=== PATIENT | male | born 1980 | race Caucasian/White ===

== ENCOUNTER 2016-09-07 10:06 | Emergency (ER) | payer MEDICAID, OTHER ==
[~2016-09-07 10:06] MED LIST: Folic Acid 1 MG in Sodium Chloride 0.9% 50 ML IV SCH
[2016-09-07] MEDS ORDERED: Thiamine 100 MG in Sodium Chloride 0.9% 100 ML IV ONE (10:22)
[2016-09-07] MEDS ORDERED: Ondansetron 4 MG/2 ML SDV IVPUSH ONE (10:28)
[2016-09-07] MEDS ORDERED: Pantoprazole 40 MG Vial IVPUSH ONE (10:28)
[2016-09-07] MEDS ORDERED: Vitamin B6-pyridOXINE 50 MG Tab PO SCH (10:30)
[2016-09-07] MEDS ORDERED: Folic Acid 50 MG/10 ML MDV IV STA (10:40)
[2016-09-07] MEDS ORDERED: Sodium Chloride 0.9% 1,000 ML IV ONE ×2 (10:41→12:05)
[2016-09-07] MEDS ORDERED: LORazepam 2 MG/ML MDV IVPUSH ONE (10:57)
[2016-09-07 10:58] LABS: CHLORIDE,CL 79 mmol/L (98-110); SODIUM,NA 128 mmol/L (136-146)
--- NOTE | 2016-09-07 11:01 | EDM.PDOC ---
<Zulema Garcia - Last Filed: 09/07/16 11:56> ED HPI Behavioral Health - General Chief Complaint: Behavioral/Psych Stated Complaint: UNK Time Seen by Provider: 09/07/16 10:10 Source of Information: Reports: Patient Exam Limitations: Reports: No limitations - History of Present Illness INITIAL COMMENTS - FREE TEXT/NARRATIVE: HISTORY AND PHYSICAL: History of present illness: [Patient is brought to the emergency room via EMS. Patient reports that at 6 AM this morning he was feeling suicidal and wanted to so he drank a Styrofoam cup full of anti-freeze. Immediately he felt regret for his actions, and made himself vomit. He's been pushing water as much as possible and continues to have vomiting. A staff member at the hotel where he lives saw that he was vomiting and called 911. Patient noted blood in his vomit. Has a history of esophageal varices, type 2 diabetes, depression, alcoholism. He complains of generalized abdominal pain which only began after vomiting. He denies any blurred vision and double vision. Wears glasses regularly. Denies pain in his chest, shortness of breath and difficulty breathing. Admits to vomiting, though none since arriving in the ER. Was taken off of Zoloft one month ago by PCP in [place] due to inability to tolerate side effects. Was not started on any other medications. Drank 1 pint of vodka yesterday. Review of systems: As per history of present illness and below otherwise all systems reviewed and negative. Past medical history: As per history of present illness and as reviewed below otherwise noncontributory. Surgical history: As per history of present illness and as reviewed below otherwise noncontributory. Social history: No reported history of drug or alcohol abuse. Family history: As per history of present illness and as reviewed below otherwise noncontributory. Physical exam: HEENT: Atraumatic, normocephalic. PERRLA. wears glasses. negative for conjunctival pallor or scleral icterus. Oral mucous membranes slightly dry. throat clear, neck supple, nontender, trachea midline. No lymphadenopathy. Lungs: Clear to auscultation, breath sounds equal bilaterally, chest nontender. Heart: S1S2, rate 130, rhythm regular. negative for clicks, rubs, or JVD. Abdomen: Normoactive bowel sounds. Soft, nondistended. Diffuse generalized abdominal discomfort with palpation. Negative for masses or hepatosplenomegaly. Negative for costovertebral tenderness. Pelvis: Stable nontender. Genitourinary: Deferred. Rectal: Deferred. Extremities: Atraumatic, negative for cords or calf pain. Full range of motion x4 extremities. Neurovascular unremarkable. Neuro: Cranial nerves II through XII unremarkable. Cerebellum unremarkable. Motor and sensory unremarkable throughout. Exam nonfocal. Psych: Awake, alert and oriented. He is tearful at times. States that he has had worsening depression over the past couple of weeks. Verbalizes that he had intention of killing himself by drinking antifreeze this morning. Diagnostics: [CBC, CMP, UA, UDS, ABG's, EKG, ETOH, salicylate, acetaminophen, TSH, T3 free, Magnesium, ethylene glycol level, methanol level, serum osmolality] Therapeutics: [1 L normal saline, folic acid, thiamine, vitamin B6, Protonix 80 mg IV, Zofran 4 mg IV, fomepizole IV, Ativan 1 mg IV Impression: [antifreeze ingestion] Plan: [Spoke with Dr. Guan at [facility] at 1130, who agrees to accept patient in transfer. Patient is notified and verbalized understanding of transfer. MAURA is completed. ] Definitive disposition and diagnosis as appropriate pending reevaluation and review of above. - Related Data Allergies Allergy/AdvReac Type Severity Reaction Status Date / Time No Known Allergies Allergy Verified 09/07/16 10:27 Home Medications: Home Meds metFORMIN [Glucophage] 1,000 mg PO BID 08/08/16 [History] Diazepam [Valium] 5 mg PO TID tablet 08/11/16 [Rx] Folic Acid 1 mg PO DAILY tablet 08/11/16 [Rx] Phosphorus #1 [Neutra-Phos] 250 mg PO QID tablet 08/11/16 [Rx] Thiamine [Vitamin B-1] 100 mg IV DAILY mdv 08/11/16 [Rx] Abdomen Pain Score (Numeric/FACES): 8 Past Medical History Cardiovascular History: Reports: Hypertension, Other (see below) Other Cardiovascular History: not currently taking any meds for HTN Gastrointestinal History: Reports: GERD Genitourinary History: Reports: Chronic renal insuffiency Neurological History: Reports: Seizure, Other (see below) Other Neuro History: states has seizures after not drinking for periods of time Psychiatric History: Reports: Depression Endocrine/Metabolic History: Reports: Diabetes, type II Oncologic (Cancer) History: Reports: None - Infectious Disease History Infectious Disease History: Reports: Chicken pox - Past Surgical History Cardiovascular Surgical History: Reports: None GI Surgical History: Reports: Appendectomy, Cholecystectomy Neurological Surgical History: Reports: None Musculoskeletal Surgical History: Reports: Shoulder surgery, Other (see below) Other Musculoskeletal Surgeries/Procedures:: Right Foot Social & Family History - Family History Family Medical History: Noncontributory - Tobacco Use Smoking Status *Q: Current Every Day Smoker Years of Tobacco use: 15 Packs/Tins Daily: 1 Used Tobacco, but Quit: No Second Hand Smoke Exposure: Yes - Caffeine Use Caffeine Use: Reports: None - Alcohol Use Days Per Week of Alcohol Use: 2 Number of Drinks Per Day: 1 Total Drinks Per Week: 2 - Recreational Drug Use Recreational Drug Use: No ED ROS GENERAL - Review of Systems Review Of Systems: ROS reveals no pertinent complaints other than HPI. ED EXAM, BEHAVIORAL HEALTH - Physical Exam Exam: See Below COURSE, BEHAVIORAL HEALTH COMP - Course Vital Signs: Last Vital Signs Temp 36.9 C 09/07/16 10:06 Pulse 131 H 09/07/16 10:06 Resp 16 09/07/16 10:06 BP 151/104 H 09/07/16 10:06 Pulse Ox 95 09/07/16 10:06 Orders, Labs, Meds: Active Orders 24 hr Category Date Time Status EKG 12 Lead [EKG Documentation Completion] [RC] STAT Care 09/07/16 10:18 Active ACETAMINOPHEN [CHEM] Stat Lab 09/07/16 10:17 Results COMPREHENSIVE METABOLIC PN,CMP [CHEM] Stat Lab 09/07/16 10:17 Results DRUG SCREEN, URINE [URCHEM] Stat Lab 09/07/16 11:52 Received ETHANOL BLOOD MEDICAL [CHEM] Stat Lab 09/07/16 10:17 Results FREE T3 [REF] Stat Lab 09/07/16 10:10 Received MAGNESIUM [CHEM] Stat Lab 09/07/16 10:17 Results MISC TEST Stat Lab 09/07/16 10:31 Ordered MISC TEST Stat Lab 09/07/16 10:32 Ordered OSMOLALITY - SERUM [REF] Stat Lab 09/07/16 10:10 Received SALICYLATE [CHEM] Stat Lab 09/07/16 10:17 Results TSH [CHEM] Stat Lab 09/07/16 10:17 Results UA W/MICROSCOPIC [URIN] Stat Lab 09/07/16 11:52 Received Folic Acid 1 mg Med 09/07/16 09:00 Active Sodium Chloride 0.9% [Normal Saline] 50 ml IV DAILY Fomepizole 1.5 gm Med 09/07/16 21:00 Active Sodium Chloride 0.9% [Normal Saline] 100 ml IV Q12HR Magnesium Sulfate/Water [Magnesium Sulfate 2 GM in Med 09/07/16 11:31 Active Water 50 ML] 2 gm Premix Bag 1 bag IV ONETIME Vitamin B6-pyridOXINE Med 09/07/16 10:30 Active 50 mg PO DAILY Medication Orders Fomepizole 1.5 gm/ Sodium (Chloride) 101.5 mls @ 100.495 mls/hr IV Q12HR [facility] Last Admin: 09/07/16 11:16 Dose: 100.495 mls/hr Magnesium Sulfate 2 gm/ Premix 50 mls @ 25 mls/hr IV ONETIME ONE Stop: 09/07/16 13:30 Last Admin: 09/07/16 11:48 Dose: 25 mls/hr Folic Acid 1 mg/ Sodium (Chloride) 50.2 mls @ 100.4 mls/hr IV DAILY [facility] Pyridoxine HCl (Vitamin B6-Pyridoxine) 50 mg PO DAILY [facility] Last Admin: 09/07/16 11:22 Dose: 50 mg Laboratory Tests 09/07/16 09/07/16 09/07/16 Range/Units 10:10 10:10 10:17 WBC 14.26 H (4.0-11.0) K/uL RBC 5.64 (4.50-5.90) M/uL Hgb 14.8 (13.0-17.0) g/dL Hct 44.0 (38.0-50.0) % MCV 78.0 L (80.0-98.0) fL MCH 26.2 L (27.0-32.0) pg MCHC 33.6 (31.0-37.0) g/dL RDW Std Deviation 44.4 (28.0-62.0) fl RDW Coeff of Destini 16 H (11.0-15.0) % Plt Count 369 (150-400) K/uL MPV 9.00 (7.40-12.00) fL Neut % (Auto) 82.4 H (48.0-80.0) % Lymph % (Auto) 10.2 L (16.0-40.0) % [place] % (Auto) 7.1 (0.0-15.0) % Eos % (Auto) 0.1 (0.0-7.0) % Baso % (Auto) 0.2 (0.0-1.5) % Neut # 11.8 H (1.4-5.7) K/uL Lymph # 1.5 (0.6-2.4) K/uL [place] # 1.0 H (0.0-0.8) K/uL Eos # 0.0 (0.0-0.7) K/uL Baso # 0.0 (0.0-0.1) K/uL Nucleated RBC % 0.0 /100WBC Nucleated RBCs # 0 K/uL INR 1.01 (0.86-1.11) ABG pH (7.35-7.45) ABG pCO2 (35-45) mmHG ABG pO2 (75-100) mmHG ABG HCO3 (22-26) mEq/L ABG Total CO2 ABG Base Excess (-2.0-2.0) Sodium 128 L (136-146) mmol/L Potassium 3.8 (3.5-5.1) mmol/L Chloride 79 L (98-110) mmol/L Carbon Dioxide 23 (21-31) mmol/L BUN 15 (6.0-23.0) mg/dL Creatinine 1.3 (0.6-1.5) mg/dL Est Cr Clr Drug Dosing 87.88 mL/min Estimated GFR (MDRD) > 60.0 ml/min Glucose 443 H (60-110) mg/dL Calcium 10.0 (8.8-10.8) mg/dL Magnesium 1.4 L (1.5-2.3) mEq/L Total Bilirubin 1.6 H (0.1-1.5) mg/dL AST 25 (5-40) IU/L ALT 70 H (8-54) IU/L Alkaline Phosphatase 213 H (40-150) Total Protein 8.6 H (6.0-8.0) g/dL Albumin 4.8 (3.5-5.0) g/dL Globulin 3.8 H (2.0-3.5) g/dL Albumin/Globulin Ratio 1.3 (1.3-2.8) Salicylates < 5.0 (0-20) mg/dL Acetaminophen < 3.0 ug/mL Ethyl Alcohol 21.4 mg/dL 09/07/16 Range/Units 11:45 WBC (4.0-11.0) K/uL RBC (4.50-5.90) M/uL Hgb (13.0-17.0) g/dL Hct (38.0-50.0) % MCV (80.0-98.0) fL MCH (27.0-32.0) pg MCHC (31.0-37.0) g/dL RDW Std Deviation (28.0-62.0) fl RDW Coeff of Destini (11.0-15.0) % Plt Count (150-400) K/uL MPV (7.40-12.00) fL Neut % (Auto) (48.0-80.0) % Lymph % (Auto) (16.0-40.0) % [place] % (Auto) (0.0-15.0) % Eos % (Auto) (0.0-7.0) % Baso % (Auto) (0.0-1.5) % Neut # (1.4-5.7) K/uL Lymph # (0.6-2.4) K/uL [place] # (0.0-0.8) K/uL Eos # (0.0-0.7) K/uL Baso # (0.0-0.1) K/uL Nucleated RBC % /100WBC Nucleated RBCs # K/uL INR (0.86-1.11) ABG pH 7.544 H (7.35-7.45) ABG pCO2 35 (35-45) mmHG ABG pO2 69 L (75-100) mmHG ABG HCO3 31 H (22-26) mEq/L ABG Total CO2 26.3 ABG Base Excess 7.6 H (-2.0-2.0) Sodium (136-146) mmol/L Potassium (3.5-5.1) mmol/L Chloride (98-110) mmol/L Carbon Dioxide (21-31) mmol/L BUN (6.0-23.0) mg/dL Creatinine (0.6-1.5) mg/dL Est Cr Clr Drug Dosing mL/min Estimated GFR (MDRD) ml/min Glucose (60-110) mg/dL Calcium (8.8-10.8) mg/dL Magnesium (1.5-2.3) mEq/L Total Bilirubin (0.1-1.5) mg/dL AST (5-40) IU/L ALT (8-54) IU/L Alkaline Phosphatase (40-150) Total Protein (6.0-8.0) g/dL Albumin (3.5-5.0) g/dL Globulin (2.0-3.5) g/dL Albumin/Globulin Ratio (1.3-2.8) Salicylates (0-20) mg/dL Acetaminophen ug/mL Ethyl Alcohol mg/dL Medications Generic Name Dose Route Start Last Admin Trade Name Freq PRN Reason Stop Dose Admin Fomepizole 1.5 gm/ Sodium 101.5 mls @ 100.495 mls/hr 09/07/16 21:00 09/07/16 11:16 Chloride IV 100.495 mls/hr Q12HR RAMESH Administration Magnesium Sulfate 2 gm/ Premix 50 mls @ 25 mls/hr 09/07/16 11:31 09/07/16 11: 48 IV 09/07/16 13:30 25 mls/hr ONETIME ONE Administration Folic Acid 1 mg/ Sodium 50.2 mls @ 100.4 mls/hr 09/07/16 09:00 Chloride IV DAILY RAMESH Pyridoxine HCl 50 mg 09/07/16 10:30 09/07/16 11:22 Vitamin B6-Pyridoxine PO 50 mg DAILY RAMESH Administration Discontinued Medications Generic Name Dose Route Start Last Admin Trade Name Freq PRN Reason Stop Dose Admin Folic Acid 50 mg 09/07/16 10:40 Folic Acid IV 09/07/16 10:41 DAILY STA Thiamine HCl 100 mg/ Sodium 101 mls @ 100 mls/hr 09/07/16 10:22 09/07/16 11: 42 Chloride IV 09/07/16 11:22 100 mls/hr ONETIME ONE Administration Sodium Chloride 1,000 mls @ 999 mls/hr 09/07/16 10:41 09/07/16 11:21 Normal Saline IV 09/07/16 11:41 300 mls/hr STAT ONE Infusion Insulin Human Regular 10 unit 09/07/16 11:31 Novolin R SUBCUT 09/07/16 11:32 ONETIME ONE Protocol Lorazepam 1 mg 09/07/16 10:57 09/07/16 11:04 Ativan IVPUSH 09/07/16 10:58 1 mg ONETIME ONE Administration Ondansetron HCl 4 mg 09/07/16 10:28 09/07/16 10:46 Zofran IVPUSH 09/07/16 10:29 4 mg ONETIME ONE Administration Pantoprazole Sodium 80 mg 09/07/16 10:28 09/07/16 10:55 Protonix Iv IVPUSH 09/07/16 10:29 80 mg .BOLUS ONE Administration Departure - Departure Disposition: DC/Tfer to Acute Hospital 02 Clinical Impression: Suicide attempt by alcohol poisoning Qualifiers: Encounter type: initial encounter Qualified Code(s): T51.92XA - Toxic effect of unspecified alcohol, intentional self-harm, initial encounter Forms: ED Department Discharge - My Orders Last 24 Hours: My Active Orders 09/07/16 11:31 Magnesium Sulfate/Water [Magnesium Sulfate 2 GM in Water 50 ML] 2 gm Premix Bag 1 bag IV ONETIME - Assessment/Plan Last 24 Hours: My Active Orders 09/07/16 11:31 Magnesium Sulfate/Water [Magnesium Sulfate 2 GM in Water 50 ML] 2 gm Premix Bag 1 bag IV ONETIME <Annabella Cardenas - Last Filed: 09/07/16 12:02> ED HPI Behavioral Health - History of Present Illness INITIAL COMMENTS - FREE TEXT/NARRATIVE: This is Dr. Cardenas dictating an addendum note as a supervising physician on this case I Agree with history and physical as above and I have seen and personally evaluated the patient myself. This patient has been seen here in the past by me for depressive symptoms and alcohol withdrawal and was admitted just recently for same. The patient does admit to drinking the antifreeze this morning about 6 AM and he states that when he was vomiting he was only a small amount of blood. Here in the ED patient's vomitus looks more bilious and brown but not bloody. He is very anxious and tachycardic there states he has been drinking water. The patient does admit to drinking a pint of alcohol yesterday afternoon. In the ED the patient denies any chest pain or abdominal pain and he is aware of the severity of his actions. I personally spoken to poison control at 10:29 AM and they will continue to follow along with this patient. Due to her laboratory sources here at our institution patient is aware he will need to be transferred to [facility]. As the patient actually expressed suicidal ideation he will need psychiatric care and we have ordered he started fomipazole here in the ED we have also treated symptomatology with IV fluids Protonix Zofran as well as the thiamine folic acid and B6 per protocol. The case was discussed with the ER physician at [facility] Dr. Guan was accepted the patient. We are currently awaiting his ABG to assess if he needs a bicarbonate drip for transportation. We are unable to get an osmolality level here so an osmol gap cannot be calculated. His anion gap is currently 26. Patient was also given some Ativan for his anxiety. Any labs that are pending at the time of transfer will be sent to the receiving hospital. Please also note that the toxic all levels are send outs for methanol and ethylene glycol. Poison control has recontacted us at 1144 for an update Critical care time excluding procedures: 35min Please also add to the impression above suicidal ideation/attempt, history of esophageal varices, hyperglycemia with history of diabetes Departure - Departure Time of Disposition: 12:01 Condition: good
[2016-09-07] MEDS ORDERED: Insulin Regular, Human 100 Units/ML 10 ML Vial SUBCUT ONE (11:31)
[2016-09-07] MEDS ORDERED: Magnesium Sulfate/Water 2 GM in Premix Bag 1 BAG IV ONE (11:31)
[2016-09-07 11:34] LABS: ACETAMINOPHEN < 3.0 ug/mL
[2016-09-07 12:24] VITALS: BP 139/94
[2016-09-07] MEDS ORDERED: Fomepizole 1.5 GM in Sodium Chloride 0.9% 100 ML IV SCH (21:00)
== END 2016-09-07 12:46 ==
LOC: MW.ED 10:06
DX: T51.92XA Toxic effect of unspecified alcohol, intentional self-harm, initial encounter (principal); I10 Essential (primary) hypertension; K21.9 Gastro-esophageal reflux disease without esophagitis; E11.9 Type 2 diabetes mellitus without complications; F17.210 Nicotine dependence, cigarettes, uncomplicated; Z79.899 Other long term (current) drug therapy; Z90.49 Acquired absence of other specified parts of digestive tract; Z90.89 Acquired absence of other organs; Z98.890 Other specified postprocedural states
CPT/HCPCS: 36415; 36600; 80053; 81001; 82803; 83735; 83930; 84443; 84481; 85025; 85610; 93005; 96361; 96365; 96368; 96372; 96375; 99285; A9270; C9113; G0478; G0479; G0480; J1451; J2060; J2405; J3411; J3475; J7030; J7040; J7050; 80305; 80320; J1815-GY

== ENCOUNTER 2016-12-23 14:06 | Emergency (ER) | payer SELFPAY ==
[2016-12-23] MEDS ORDERED: Sodium Chloride 0.9% 1,000 ML IV ONE (14:40)
[2016-12-23] MEDS ORDERED: Ondansetron 4 MG/2 ML SDV IVPUSH ONE (14:47)
[2016-12-23] MEDS ORDERED: Ketorolac 30 MG/ML SDV IVPUSH ONE (14:48)
[2016-12-23 15:33] LABS: CHLORIDE,CL 100 mmol/L (98-110); SODIUM,NA 139 mmol/L (136-146)
[2016-12-23 15:44] LABS: ACETAMINOPHEN < 3.0 ug/mL
--- NOTE | 2016-12-23 16:13 | EDM.PDOC ---
<Abiel Rose - Last Filed: 12/23/16 17:39> ED HPI GENERAL MEDICAL PROBLEM - General Chief Complaint: Headache Stated Complaint: SEVERE HEADACHE Time Seen by Provider: 12/23/16 14:28 Source of Information: Reports: Patient History Limitations: Reports: No Limitations - History of Present Illness INITIAL COMMENTS - FREE TEXT/NARRATIVE: History of present illness: [36-year-old male comes in complaining of abdominal pain. Indicates that his stomach is started hurting worse and worse today and he hasn't been drinking so he doesn't understand quite why it is hurting him. While evaluating patient he also acknowledges that he feels his depression has become overwhelming and that he feels apathetic and he should just . He acknowledges he doesn't have a current plan as his last attempt of drinking antifreeze and is in failure so he was going to contemplate a more effective plan and so at this juncture he was just cycling through potentials.] Review of systems: As per history of present illness and below otherwise all systems reviewed and negative. Past medical history: As per history of present illness and as reviewed below otherwise noncontributory. Surgical history: As per history of present illness and as reviewed below otherwise noncontributory. Social history: No reported history of drug or alcohol abuse. Family history: As per history of present illness and as reviewed below otherwise noncontributory. Physical exam: HEENT: Atraumatic, normocephalic, pupils reactive, negative for conjunctival pallor or scleral icterus, mucous membranes moist, throat clear, neck supple, nontender, trachea midline. Lungs: Clear to auscultation, breath sounds equal bilaterally, chest nontender. Heart: S1S2, regular, negative for clicks, rubs, or JVD. Abdomen: Soft, protuberant diffusely tender, Negative for masses or hepatosplenomegaly. Negative for costovertebral tenderness. Pelvis: Stable nontender. Genitourinary: Deferred. Rectal: Deferred. Extremities: Atraumatic, negative for cords or calf pain. Neurovascular unremarkable. Neuro: Awake, alert, oriented. Cranial nerves II through XII unremarkable. Cerebellum unremarkable. Motor and sensory unremarkable throughout. Exam nonfocal. Diagnostics: [] Therapeutics: [IV fluid, Toradol] Impression: [Abdominal pain with suicidal ideation] Plan: [Transfer to [facility]] Definitive disposition and diagnosis as appropriate pending reevaluation and review of above. - Related Data Allergies Allergy/AdvReac Type Severity Reaction Status Date / Time No Known Allergies Allergy Verified 09/07/16 10:27 Home Meds: Home Meds FLUoxetine [PROzac] 12/23/16 [History] Past Medical History - Past Health History Medical/Surgical History: Denies Medical/Surgical History Cardiovascular History: Reports: Hypertension Other Cardiovascular History: not currently taking any meds for HTN Gastrointestinal History: Reports: GERD Genitourinary History: Reports: Chronic Renal Insuffiency Neurological History: Reports: Seizure Other Neuro History: states has seizures after not drinking for periods of time Psychiatric History: Reports: Depression, Suicide Attempt, Suicidal Ideation Endocrine/Metabolic History: Reports: Diabetes, Type II Oncologic (Cancer) History: Reports: None - Infectious Disease History Infectious Disease History: Reports: Chicken Pox - Past Surgical History GI Surgical History: Reports: Appendectomy, Cholecystectomy Musculoskeletal Surgical History: Reports: Shoulder Surgery, Other (See Below) Social & Family History - Family History Family Medical History: Noncontributory - Tobacco Use Smoking Status *Q: Current Every Day Smoker Years of Tobacco use: 20 Packs/Tins Daily: 1 Used Tobacco, but Quit: No Second Hand Smoke Exposure: Yes - Caffeine Use Caffeine Use: Reports: None - Alcohol Use Days Per Week of Alcohol Use: 2 Number of Drinks Per Day: 1 Total Drinks Per Week: 2 - Recreational Drug Use Recreational Drug Use: No ED ROS GENERAL - Review of Systems Review Of Systems: See Below (See history of present illness) ED EXAM, GENERAL - Physical Exam Exam: See Below (See history of present illness) Course - Vital Signs Last Recorded V/S: Last Vital Signs Temp 36.5 C 12/23/16 14:09 Pulse 86 12/23/16 16:56 Resp 18 12/23/16 16:56 BP 152/93 H 12/23/16 16:56 Pulse Ox 95 12/23/16 16:56 - Orders/Labs/Meds Orders: Active Orders 24 hr Category Date Time Status EKG Documentation Completion [RC] STAT Care 12/23/16 14:40 Active Abdomen Pelvis w Cont [CT] Stat Exams 12/23/16 14:54 Taken FREE T3 [REF] Stat Lab 12/23/16 14:54 Received Labs: Laboratory Tests 12/23/16 12/23/1612/23/17 Range/Units 14:54 14:54 17:08 WBC 6.85 (4.0-11.0) K/uL RBC 4.87 (4.50-5.90) M/uL Hgb 12.3 L (13.0-17.0) g/dL Hct 38.2 (38.0-50.0) % MCV 78.4 L (80.0-98.0) fL MCH 25.3 L (27.0-32.0) pg MCHC 32.2 (31.0-37.0) g/dL RDW Std Deviation 45.3 (28.0-62.0) fl RDW Coeff of Destini 16 H (11.0-15.0) % Plt Count 289 (150-400) K/uL MPV 8.50 (7.40-12.00) fL Neut % (Auto) 76.1 (48.0-80.0) % Lymph % (Auto) 14.0 L (16.0-40.0) % [place] % (Auto) 9.5 (0.0-15.0) % Eos % (Auto) 0.0 (0.0-7.0) % Baso % (Auto) 0.4 (0.0-1.5) % Neut # (Auto) 5.2 (1.4-5.7) K/uL Lymph # (Auto) 1.0 (0.6-2.4) K/uL [place] # (Auto) 0.7 (0.0-0.8) K/uL Eos # (Auto) 0.0 (0.0-0.7) K/uL Baso # (Auto) 0.0 (0.0-0.1) K/uL Nucleated RBC % 0.0 /100WBC Nucleated RBCs # 0 K/uL Sodium 139 (136-146) mmol/L Potassium 3.9 (3.5-5.1) mmol/L Chloride 100 (98-110) mmol/L Carbon Dioxide 19 L (21-31) mmol/L BUN 12 (6.0-23.0) mg/dL Creatinine 1.0 (0.6-1.5) mg/dL Est Cr Clr Drug Dosing 114.24 mL/min Estimated GFR (MDRD) > 60.0 ml/min Glucose 176 H (60-110) mg/dL Calcium 9.1 (8.8-10.8) mg/dL Magnesium 1.4 L (1.5-2.3) mEq/L Total Bilirubin 1.1 (0.1-1.5) mg/dL AST 30 (5-40) IU/L ALT 87 H (8-54) IU/L Alkaline Phosphatase 157 H (40-150) Total Protein 8.0 (6.0-8.0) g/dL Albumin 4.8 (3.5-5.0) g/dL Globulin 3.2 (2.0-3.5) g/dL Albumin/Globulin Ratio 1.5 (1.3-2.8) TSH 3rd Generation 1.16 (0.47-5.0) uIU/mL Urine Color Urine Appearance Urine pH (5.0-8.0) Ur Specific [place] (1.001-1.035) Urine Protein (NEGATIVE) mg/dL Urine Glucose (UA) (NEGATIVE) mg/dL Urine Ketones (NEGATIVE) mg/dL Urine Occult Blood (NEGATIVE) Urine Nitrite (NEGATIVE) Urine Bilirubin (NEGATIVE) Urine Urobilinogen (<2.0) EU/dL Ur Leukocyte Esterase (NEGATIVE) Urine RBC (0-2/HPF) Urine WBC (0-5/HPF) Ur Epithelial Cells (NONE-FEW) Urine Bacteria (NEGATIVE) Salicylates < 5.0 (0-20) mg/dL Urine Opiates Screen NEGATIVE (NEGATIVE) Ur Oxycodone Screen NEGATIVE (NEGATIVE) Urine Methadone Screen NEGATIVE (NEGATIVE) Acetaminophen < 3.0 ug/mL Ur Barbiturates Screen NEGATIVE (NEGATIVE) Ur Phencyclidine Scrn NEGATIVE (NEGATIVE) Ur Amphetamine Screen NEGATIVE (NEGATIVE) U Methamphetamines Scrn NEGATIVE (NEGATIVE) U Benzodiazepines Scrn NEGATIVE (NEGATIVE) U Cocaine Metab Screen NEGATIVE (NEGATIVE) U Marijuana (THC) Screen NEGATIVE (NEGATIVE) Ethyl Alcohol < 10.0 mg/dL 12/23/16 Range/Units 17:08 WBC (4.0-11.0) K/uL RBC (4.50-5.90) M/uL Hgb (13.0-17.0) g/dL Hct (38.0-50.0) % MCV (80.0-98.0) fL MCH (27.0-32.0) pg MCHC (31.0-37.0) g/dL RDW Std Deviation (28.0-62.0) fl RDW Coeff of Destini (11.0-15.0) % Plt Count (150-400) K/uL MPV (7.40-12.00) fL Neut % (Auto) (48.0-80.0) % Lymph % (Auto) (16.0-40.0) % [place] % (Auto) (0.0-15.0) % Eos % (Auto) (0.0-7.0) % Baso % (Auto) (0.0-1.5) % Neut # (Auto) (1.4-5.7) K/uL Lymph # (Auto) (0.6-2.4) K/uL [place] # (Auto) (0.0-0.8) K/uL Eos # (Auto) (0.0-0.7) K/uL Baso # (Auto) (0.0-0.1) K/uL Nucleated RBC % /100WBC Nucleated RBCs # K/uL Sodium (136-146) mmol/L Potassium (3.5-5.1) mmol/L Chloride (98-110) mmol/L Carbon Dioxide (21-31) mmol/L BUN (6.0-23.0) mg/dL Creatinine (0.6-1.5) mg/dL Est Cr Clr Drug Dosing mL/min Estimated GFR (MDRD) ml/min Glucose (60-110) mg/dL Calcium (8.8-10.8) mg/dL Magnesium (1.5-2.3) mEq/L Total Bilirubin (0.1-1.5) mg/dL AST (5-40) IU/L ALT (8-54) IU/L Alkaline Phosphatase (40-150) Total Protein (6.0-8.0) g/dL Albumin (3.5-5.0) g/dL Globulin (2.0-3.5) g/dL Albumin/Globulin Ratio (1.3-2.8) TSH 3rd Generation (0.47-5.0) uIU/mL Urine Color YELLOW Urine Appearance CLEAR Urine pH 7.5 (5.0-8.0) Ur Specific [place] 1.010 (1.001-1.035) Urine Protein 30 (NEGATIVE) mg/dL Urine Glucose (UA) NEGATIVE (NEGATIVE) mg/dL Urine Ketones TRACE H (NEGATIVE) mg/dL Urine Occult Blood TRACE-LYSED (NEGATIVE) Urine Nitrite NEGATIVE (NEGATIVE) Urine Bilirubin NEGATIVE (NEGATIVE) Urine Urobilinogen 0.2 (<2.0) EU/dL Ur Leukocyte Esterase NEGATIVE (NEGATIVE) Urine RBC 0-1 (0-2/HPF) Urine WBC 0-1 (0-5/HPF) Ur Epithelial Cells RARE (NONE-FEW) Urine Bacteria RARE (NEGATIVE) Salicylates (0-20) mg/dL Urine Opiates Screen (NEGATIVE) Ur Oxycodone Screen (NEGATIVE) Urine Methadone Screen (NEGATIVE) Acetaminophen ug/mL Ur Barbiturates Screen (NEGATIVE) Ur Phencyclidine Scrn (NEGATIVE) Ur Amphetamine Screen (NEGATIVE) U Methamphetamines Scrn (NEGATIVE) U Benzodiazepines Scrn (NEGATIVE) U Cocaine Metab Screen (NEGATIVE) U Marijuana (THC) Screen (NEGATIVE) Ethyl Alcohol mg/dL Meds: Medications Discontinued Medications Generic Name Dose Route Start Last Admin Trade Name Freq PRN Reason Stop Dose Admin Sodium Chloride 1,000 mls @ 999 mls/hr 12/23/16 14:40 12/23/16 15:30 Normal Saline IV 12/23/16 15:40 999 mls/hr STAT ONE Administration Ketorolac Tromethamine 30 mg 12/23/16 14:48 12/23/16 15:40 Toradol IVPUSH 12/23/16 14:49 30 mg ONETIME ONE Administration Ondansetron HCl 8 mg 12/23/16 14:47 12/23/16 15:42 Zofran IVPUSH 12/23/16 14:48 8 mg ONETIME ONE Administration Departure - Departure Time of Disposition: 17:43 Disposition: DC/Tfer to Psych Hosp/Unit 65 Condition: Good Clinical Impression: Suicidal ideation - Discharge Information Referrals: PCP,None [Primary Care Provider] - Forms: ED Department Discharge <Annabella Cardenas - Last Filed: 12/23/16 18:04> ED HPI GENERAL MEDICAL PROBLEM - History of Present Illness INITIAL COMMENTS - FREE TEXT/NARRATIVE: This is Dr. Cardenas dictating an addendum note supervising physician. Please add to the above diagnostics that we performed an EKG CBC CMP TSH UA UDS EtOH level Tylenol and aspirin levels as well as CT scan of the abdomen and pelvis. I was involved with this patient's care the last time he presented after his intentional ingestion of antifreeze and agree with the above findings with the patient is exhibiting suicidal ideation he needs further care and evaluation. And MAURA has been performed and the case was discussed with the psychiatrist at [facility], at [phone]. She has accepted the patient for transfer for further psychiatric care. Dr. Washington in the emergency department was also contacted and is aware of this transfer and accepts. Please also addendum the impression above as to say abdominal pain etiology unclear stable and suicidal ideation with history of same
--- NOTE | 2016-12-23 18:35 | CT ---
EXAM DATE: 12/23/16 PATIENT'S AGE: 36 Patient: JANET ENGLISH Facility: [place], [place] Site . Site : [id number] Study: CT Abdomen/Pelvis [id number]/16/2017 4:40:49 PM Ordering Physician: Doctor Gustafson Final Report: INDICATION: Upper abdominal pain and vomiting since this morning. CT ABDOMEN AND PELVIS WITH CONTRAST TECHNIQUE: Multidetector CT imaging was performed through the abdomen and pelvis following intravenous contrast administration using 100 mL Isovue 370. Coronal and sagittal reconstructions were generated. COMPARISON: None. FINDINGS: Lower chest: Lung bases are clear. Liver: Diffuse fatty infiltration of the liver. Gallbladder and bile ducts: Status post cholecystectomy. No biliary dilation identified. Pancreas: Unremarkable. Spleen: Normal. Adrenals: No nodules or masses. Kidneys, ureters, and urinary bladder: No renal masses or hydronephrosis. No bladder mass or definite wall thickening. Gastrointestinal tract: Small hiatal hernia. Normal caliber small bowel without wall thickening. Appendix not identified. Solitary small sigmoid colon diverticulum, without evidence of diverticulitis. Vascular structures: Normal for age. Peritoneum: No free air, abscess, or significant free fluid. Abdominal wall: Very small fat-containing umbilical hernia. Lymph nodes: No pathologically enlarged nodes identified. Reproductive organs: No pelvic masses. Bones: Unremarkable aside from sclerotic changes, with central lucencies, in the femoral heads consistent with avascular necrosis. IMPRESSION: 1. No acute abnormality identified. No cause for the patient`s symptoms is evident. 2. Fatty infiltration of liver. 3. Status post cholecystectomy. 4. Small hiatal hernia. 5. Sigmoid colon diverticulum. 6. Bilateral femoral head avascular necrosis. 7. Small fat-containing umbilical hernia. SAMM DE JESUS MD [employer] Dictated by Joe De Jesus MD @ 12/23/2016 4:53:11 PM Dictated by: Joe De Jesus MD @ 12/23/2016 16:55:07 (Electronic Signature) Report Signed by Proxy. [facility]
[2016-12-23 20:07] VITALS: BP 148/105
== END 2016-12-23 18:25 ==
LOC: MW.ED 14:06
DX: R10.9 Unspecified abdominal pain (principal); R45.851 Suicidal ideations; I12.9 Hypertensive chronic kidney disease with stage 1 through stage 4 chronic kidney disease, or unspecified chronic kidney disease; E11.22 Type 2 diabetes mellitus with diabetic chronic kidney disease; N18.9 Chronic kidney disease, unspecified; F32.9 Major depressive disorder, single episode, unspecified; F17.210 Nicotine dependence, cigarettes, uncomplicated; Z90.49 Acquired absence of other specified parts of digestive tract; Z98.890 Other specified postprocedural states
CPT/HCPCS: 74177; 80053; 80305; 81001; 83735; 84443; 84481; 85025; 93005; 96361; 96374; 96375; 99285; G0480; J1885; J2405; J7040; 36415; 99284

== ENCOUNTER 2017-10-06 22:52 | Emergency (ER) | payer BC ==
--- NOTE | 2017-10-06 23:19 | EDM.PDOC ---
ED HPI GENERAL MEDICAL PROBLEM - General Chief Complaint: Behavioral/Psych Stated Complaint: PT VOMITING Time Seen by Provider: 10/06/17 23:14 - History of Present Illness INITIAL COMMENTS - FREE TEXT/NARRATIVE: HISTORY AND PHYSICAL: History of present illness: Patient is a 37-year-old white male who presents after suicide attempt he was drinking alcohol tonight and states she also drank a half a glass of antifreeze this would've occurred approximately 10 PM. He denies other ingestion on arrival was cooperative agrees to transfer Review of systems: As per history of present illness and below otherwise all systems reviewed and negative. Past medical history: As per history of present illness and as reviewed below otherwise noncontributory. Surgical history: As per history of present illness and as reviewed below otherwise noncontributory. Social history: No reported history of drug or alcohol abuse. Family history: As per history of present illness and as reviewed below otherwise noncontributory. Physical exam: HEENT: Atraumatic, normocephalic, pupils reactive, negative for conjunctival pallor or scleral icterus, mucous membranes moist, throat clear, neck supple, nontender, trachea midline. Lungs: Clear to auscultation, breath sounds equal bilaterally, chest nontender. Heart: S1S2, regular, negative for clicks, rubs, or JVD. Abdomen: Soft, nondistended, nontender. Negative for masses or hepatosplenomegaly. Negative for costovertebral tenderness. Pelvis: Stable nontender. Genitourinary: Deferred. Rectal: Deferred. Extremities: Atraumatic, negative for cords or calf pain. Neurovascular unremarkable. Neuro: Awake, alert, oriented. Cranial nerves II through XII unremarkable. Cerebellum unremarkable. Motor and sensory unremarkable throughout. Exam nonfocal. Diagnostics: Psychiatric panel serum osmolality Therapeutics: IV O2 monitor fomepizole 15 mg/kg IV Impression: #1 suicide attempt ( antifreeze ingestion) Definitive disposition and diagnosis as appropriate pending reevaluation and review of above. - Related Data Allergies Allergy/AdvReac Type Severity Reaction Status Date / Time No Known Allergies Allergy Verified 09/07/16 10:27 Home Meds: Home Meds FLUoxetine [PROzac] 12/23/16 [History] Past Medical History - Past Health History Medical/Surgical History: Denies Medical/Surgical History Cardiovascular History: Reports: Hypertension Other Cardiovascular History: not currently taking any meds for HTN Gastrointestinal History: Reports: GERD Genitourinary History: Reports: Chronic Renal Insuffiency Neurological History: Reports: Seizure Other Neuro History: states has seizures after not drinking for periods of time Psychiatric History: Reports: Depression, Suicide Attempt, Suicidal Ideation Endocrine/Metabolic History: Reports: Diabetes, Type II Oncologic (Cancer) History: Reports: None - Infectious Disease History Infectious Disease History: Reports: Chicken Pox - Past Surgical History GI Surgical History: Reports: Appendectomy, Cholecystectomy Musculoskeletal Surgical History: Reports: Shoulder Surgery, Other (See Below) Social & Family History - Family History Family Medical History: Noncontributory - Tobacco Use Smoking Status *Q: Current Every Day Smoker Years of Tobacco use: 20 Packs/Tins Daily: 1 Used Tobacco, but Quit: No Second Hand Smoke Exposure: Yes - Caffeine Use Caffeine Use: Reports: None - Alcohol Use Days Per Week of Alcohol Use: 2 Number of Drinks Per Day: 1 Total Drinks Per Week: 2 - Recreational Drug Use Recreational Drug Use: No ED ROS GENERAL - Review of Systems Review Of Systems: ROS reveals no pertinent complaints other than HPI. ED EXAM, GENERAL - Physical Exam Exam: See Below (See dictation) Course - Vital Signs Text/Narrative:: Poison control was consulted case was discussed with Dr. Davidson [facility] graciously accepted the patient for transfer - Orders/Labs/Meds Orders: Active Orders 24 hr Category Date Time Status Fomepizole 1.5 gm Med 10/07/17 09:00 Active Sodium Chloride 0.9% [Normal Saline] 100 ml IV Q12HR Medication Orders Fomepizole 1.5 gm/ Sodium (Chloride) 101.5 mls @ 203 mls/hr IV Q12HR [facility] Meds: Medications Generic Name Dose Route Start Last Admin Trade Name Freq PRN Reason Stop Dose Admin Fomepizole 1.5 gm/ Sodium 101.5 mls @ 203 mls/hr 10/07/17 09:00 Chloride IV Q12HR RAMESH Departure - Departure Time of Disposition: 23:18 Disposition: DC/Tfer to Acute Hospital 02 Condition: Undetermined Clinical Impression: Suicide attempt, Ingestion of toxic substance - Discharge Information - My Orders Last 24 Hours: My Active Orders 10/07/17 09:00 Fomepizole 1.5 gm Sodium Chloride 0.9% [Normal Saline] 100 ml IV Q12HR - Assessment/Plan Last 24 Hours: My Active Orders 10/07/17 09:00 Fomepizole 1.5 gm Sodium Chloride 0.9% [Normal Saline] 100 ml IV Q12HR
[2017-10-06] MEDS ORDERED: Ondansetron 4 MG/2 ML SDV IVPUSH ONE (23:32)
[2017-10-06 23:44] LABS: CHLORIDE,CL 90 mmol/L (98-107); SODIUM,NA 135 mmol/L (136-148)
[2017-10-07 02:12] VITALS: BP 140/94
[2017-10-07] MEDS ORDERED: Fomepizole 1.5 GM in Sodium Chloride 0.9% 100 ML IV SCH (09:00)
== END 2017-10-07 00:20 ==
LOC: MW.ED 22:52
DX: T51.1X2A Toxic effect of methanol, intentional self-harm, initial encounter (principal); I12.0 Hypertensive chronic kidney disease with stage 5 chronic kidney disease or end stage renal disease; N18.9 Chronic kidney disease, unspecified; E11.22 Type 2 diabetes mellitus with diabetic chronic kidney disease; F17.210 Nicotine dependence, cigarettes, uncomplicated
CPT/HCPCS: 80053; 83605; 83930; 93005; 99285; G0480; J1451; J2405; J7030; 36415; 99284

== ENCOUNTER 2017-12-03 03:44 | Emergency (ER) | payer BC, MEDICAID ==
[2017-12-03] MEDS ORDERED: Ondansetron 4 MG/2 ML SDV IVPUSH ONE (03:49)
[2017-12-03] MEDS ORDERED: Sodium Chloride 0.9% 1,000 ML IV ONE ×2 (03:49→05:09)
--- NOTE | 2017-12-03 03:53 | EDM.PDOC ---
ED HPI GENERAL MEDICAL PROBLEM - General Stated Complaint: AMBULANCE Time Seen by Provider: 12/03/17 03:53 Source of Information: Reports: Patient - History of Present Illness INITIAL COMMENTS - FREE TEXT/NARRATIVE: HISTORY AND PHYSICAL: History of present illness: [Patient presents via EMS Has a complaint of intractable nausea and vomiting as well as suicidal ideation with plan, patient has been avoiding driving his vehicle over the last few days as he has a clear plan to drive in front of a semi-in an attempt to end his life He has a history of diabetes and bipolar disorder with depression He has previous suicidal ideation and transfer He is alert and cooperative he has not vomited since his arrival post Zofran. ] Review of systems: As per history of present illness and below otherwise all systems reviewed and negative. Past medical history: As per history of present illness and as reviewed below otherwise noncontributory. Surgical history: As per history of present illness and as reviewed below otherwise noncontributory. Social history: No reported history of drug or alcohol abuse. Family history: As per history of present illness and as reviewed below otherwise noncontributory. Physical exam: HEENT: Atraumatic, normocephalic, pupils reactive, negative for conjunctival pallor or scleral icterus, mucous membranes moist, throat clear, neck supple, nontender, trachea midline. Lungs: Clear to auscultation, breath sounds equal bilaterally, chest nontender. Heart: S1S2, regular, negative for clicks, rubs, or JVD. Abdomen: Soft, nondistended, nontender. Negative for masses or hepatosplenomegaly. Negative for costovertebral tenderness. Pelvis: Stable nontender. Genitourinary: Deferred. Rectal: Deferred. Extremities: Atraumatic, negative for cords or calf pain. Neurovascular unremarkable. Neuro: Awake, alert, oriented. Cranial nerves II through XII unremarkable. Cerebellum unremarkable. Motor and sensory unremarkable throughout. Exam nonfocal. Diagnostics: CBC CMP UA troponin lithium level lipase acetaminophen salicylate alcohol and drug screen EKG Chest 1 view ] Therapeutics: [1 L normal saline 2 Zofran 8 mg IV Ativan 1 mg IV Patient transferred to Dr. Chivo Schwartz accepting in the ER Dr. Fitzgerald excepting in psychiatry ] Impression: [ nausea vomiting resolved Hyponatremia Renal insufficiency Suicidal ideation with plan Chronic history baseline Definitive disposition and diagnosis as appropriate pending reevaluation and review of above. Abd/Esophagus Pain Score (Numeric/FACES): 7 - Related Data Allergies Allergy/AdvReac Type Severity Reaction Status Date / Time No Known Allergies Allergy Verified 12/03/17 04:45 Home Meds: Home Meds glipiZIDE [Glucotrol XL] 15 mg PO DAILY 10/06/17 [History] [place] Carbonate 200 mg PO DAILY 12/03/17 [History] Omeprazole Magnesium [Prilosec Otc] 20 mg PO DAILY 12/03/17 [History] QUEtiapine Fumarate [Seroquel] 300 mg PO DAILY 12/03/17 [History] Past Medical History - Past Health History Medical/Surgical History: Denies Medical/Surgical History Cardiovascular History: Reports: Hypertension Other Cardiovascular History: not currently taking any meds for HTN Gastrointestinal History: Reports: GERD Genitourinary History: Reports: Chronic Renal Insuffiency Neurological History: Reports: Seizure Other Neuro History: states has seizures after not drinking for periods of time Psychiatric History: Reports: Depression, Suicide Attempt, Suicidal Ideation Endocrine/Metabolic History: Reports: Diabetes, Type II Oncologic (Cancer) History: Reports: None - Infectious Disease History Infectious Disease History: Reports: Chicken Pox - Past Surgical History GI Surgical History: Reports: Appendectomy, Cholecystectomy Musculoskeletal Surgical History: Reports: Shoulder Surgery, Other (See Below) Social & Family History - Family History Family Medical History: Noncontributory - Caffeine Use Caffeine Use: Reports: None ED ROS GENERAL - Review of Systems Review Of Systems: See Below ED EXAM, GENERAL - Physical Exam Exam: See Below Course - Vital Signs Last Recorded V/S: Last Vital Signs Temp 98.1 F 12/03/17 04:40 Pulse 116 H 12/03/17 04:45 Resp 18 12/03/17 04:45 BP 153/102 H 12/03/17 04:45 Pulse Ox 96 12/03/17 04:45 - Orders/Labs/Meds Orders: Active Orders 24 hr Category Date Time Status EKG Documentation Completion [RC] STAT Care 12/03/17 03:49 Active Chest 1V Frontal [CR] Stat Exams 12/03/17 03:49 Taken DRUG SCREEN, URINE [URCHEM] Stat Lab 12/03/17 03:49 Ordered LITHIUM [REF] Stat Lab 12/03/17 03:45 Received UA W/MICROSCOPIC [URIN] Stat Lab 12/03/17 03:49 Ordered Sodium Chloride 0.9% [Normal Saline] 1,000 ml Med 12/03/17 05:09 Active IV .Bolus Sodium Chloride 0.9% [Normal Saline] 1,000 ml Med 12/03/17 05:00 Active IV STAT Medication Orders Sodium Chloride (Normal Saline) 1,000 mls @ 150 mls/hr IV STAT RAMESH Sodium Chloride (Normal Saline) 1,000 mls @ 999 mls/hr IV .Bolus ONE Stop: 12/03/17 06:09 Last Admin: 12/03/17 05:10 Dose: 999 mls/hr Labs: Laboratory Tests 12/03/17 12/03/17 Range/Units 03:45 03:45 WBC 15.43 H (4.0-11.0) K/uL RBC 5.63 (4.50-5.90) M/uL Hgb 17.4 H (13.0-17.0) g/dL Hct 46.9 (38.0-50.0) % MCV 83.3 (80.0-98.0) fL MCH 30.9 (27.0-32.0) pg MCHC 37.1 H (31.0-37.0) g/dL RDW Std Deviation 42.6 (28.0-62.0) fl RDW Coeff of Destini 14 (11.0-15.0) % Plt Count 279 (150-400) K/uL MPV 9.20 (7.40-12.00) fL Neut % (Auto) 72.4 (48.0-80.0) % Lymph % (Auto) 20.5 (16.0-40.0) % Mccormick % (Auto) 6.2 (0.0-15.0) % Eos % (Auto) 0.8 (0.0-7.0) % Baso % (Auto) 0.1 (0.0-1.5) % Neut # (Auto) 11.2 H (1.4-5.7) K/uL Lymph # (Auto) 3.2 H (0.6-2.4) K/uL Mccormick # (Auto) 1.0 H (0.0-0.8) K/uL Eos # (Auto) 0.1 (0.0-0.7) K/uL Baso # (Auto) 0.0 (0.0-0.1) K/uL Nucleated RBC % 0.0 /100WBC Nucleated RBCs # 0 K/uL Sodium 127 L (136-148) mmol/L Potassium 3.2 L (3.5-5.1) mmol/L Chloride 85 L (98-107) mmol/L Carbon Dioxide 24.8 (21.0-32.0) mmol/L BUN 16 (7.0-18.0) mg/dL Creatinine 1.4 H (0.8-1.3) mg/dL Est Cr Clr Drug Dosing TNP Estimated GFR (MDRD) 57.7 ml/min Glucose 260 H (74-106) mg/dL Calcium 9.0 (8.5-10.1) mg/dL Total Bilirubin 1.6 H (0.2-1.0) mg/dL AST 34 (15-37) IU/L ALT 51 (14-63) IU/L Alkaline Phosphatase 151 H (46-116) U/L Troponin I < 0.050 (0.000-0.056) ng/mL Total Protein 8.2 (6.4-8.2) g/dL Albumin 4.3 (3.4-5.0) g/dL Globulin 3.9 H (2.0-3.5) g/dL Albumin/Globulin Ratio 1.1 L (1.3-2.8) Lipase 43 L (73-393) U/L TSH 3rd Generation 4.31 H (0.36-3.74) uIU/mL Salicylates 0.6 (0-20) mg/dL Acetaminophen 0.0 ug/mL Ethyl Alcohol <3 mg/dL Meds: Medications Generic Name Dose Route Start Last Admin Trade Name Freq PRN Reason Stop Dose Admin Sodium Chloride 1,000 mls @ 150 mls/hr 12/03/17 05:00 Normal Saline IV STAT RAMESH Sodium Chloride 1,000 mls @ 999 mls/hr 12/03/17 05:09 12/03/17 05:10 Normal Saline IV 12/03/17 06:09 999 mls/hr .Bolus ONE Administration Discontinued Medications Generic Name Dose Route Start Last Admin Trade Name Freq PRN Reason Stop Dose Admin Sodium Chloride 1,000 mls @ 999 mls/hr 12/03/17 03:49 12/03/17 04:04 Normal Saline IV 12/03/17 04:49 999 mls/hr STAT ONE Administration Lorazepam 1 mg 12/03/17 04:26 12/03/17 04:30 Ativan IVPUSH 12/03/17 04:27 1 mg ONETIME ONE Administration Ondansetron HCl 8 mg 12/03/17 03:49 12/03/17 04:04 Zofran IVPUSH 12/03/17 03:50 8 mg ONETIME ONE Administration Departure - Departure Time of Disposition: 05:17 Disposition: DC/Tfer to Other 70 Condition: Fair Clinical Impression: Hyponatremia, Renal insufficiency, Depressive disorder, Suicidal ideation Nausea & vomiting Qualifiers: Vomiting type: unspecified Vomiting Intractability: unspecified Qualified Code( s): R11.2 - Nausea with vomiting, unspecified - Discharge Information - My Orders Last 24 Hours: My Active Orders 12/03/17 03:45 LITHIUM [REF] Stat 12/03/17 03:49 EKG Documentation Completion [RC] STAT Chest 1V Frontal [CR] Stat DRUG SCREEN, URINE [URCHEM] Stat UA W/MICROSCOPIC [URIN] Stat 12/03/17 05:00 Sodium Chloride 0.9% [Normal Saline] 1,000 ml IV STAT 12/03/17 05:09 Sodium Chloride 0.9% [Normal Saline] 1,000 ml IV .Bolus - Assessment/Plan Last 24 Hours: My Active Orders 12/03/17 03:45 LITHIUM [REF] Stat 12/03/17 03:49 EKG Documentation Completion [RC] STAT Chest 1V Frontal [CR] Stat DRUG SCREEN, URINE [URCHEM] Stat UA W/MICROSCOPIC [URIN] Stat 12/03/17 05:00 Sodium Chloride 0.9% [Normal Saline] 1,000 ml IV STAT 12/03/17 05:09 Sodium Chloride 0.9% [Normal Saline] 1,000 ml IV .Bolus
[2017-12-03] MEDS ORDERED: LORazepam 2 MG/ML SDV IVPUSH ONE (04:26)
[2017-12-03 04:38] LABS: CHLORIDE,CL 85 mmol/L (98-107); SODIUM,NA 127 mmol/L (136-148)
[2017-12-03 04:48] VITALS: BP 153/102
[2017-12-03] MEDS ORDERED: Sodium Chloride 0.9% 1,000 ML IV SCH (05:00)
--- NOTE | 2017-12-05 13:02 | CR ---
EXAM DATE: 12/03/17 PATIENT'S AGE: 37 Patient: JANET ENGLISH Facility: [place], [place] Site . Site : [id number] Study: XRay Chest [id number]/27/2018 4:19:58 AM Ordering Physician: Doctor Gustafson Final Report: INDICATION: Chest pain, shortness of breath. Smoker. TECHNIQUE: Chest radiograph 1 view COMPARISON: 08/08/2016. FINDINGS: Cardiovascular and mediastinum: The heart silhouette is normal in size and morphology. The mediastinum is normal in appearance. Lungs and pleural spaces: Both lungs are unremarkable in appearance. No sign of pleural effusion seen. No pneumothorax is identified. Bones and soft tissues: No significant findings. Single screw projects at the left glenoid. IMPRESSION: 1. No acute cardiopulmonary disease is seen. Dictated by Willard De Luna MD @ 12/03/2017 5:10:17 AM Dictated by: Willard De Luna MD @ 12/03/2017 05:10:23 (Electronic Signature) Report Signed by Proxy. [facility] HE[facility] NETWORKMercedez
== END 2017-12-03 06:02 | disposition other institution (70) ==
LOC: MW.ED 03:44
DX: E87.1 Hypo-osmolality and hyponatremia (principal); F32.9 Major depressive disorder, single episode, unspecified; R45.851 Suicidal ideations; I12.9 Hypertensive chronic kidney disease with stage 1 through stage 4 chronic kidney disease, or unspecified chronic kidney disease; E11.22 Type 2 diabetes mellitus with diabetic chronic kidney disease; N18.9 Chronic kidney disease, unspecified; Z79.899 Other long term (current) drug therapy
CPT/HCPCS: 36415; 71045; 80053; 80178; 83690; 84443; 84484; 85025; 96361; 96374; 96375; 99285; G0480; J2060; J2405; J7040

== ENCOUNTER 2018-02-25 09:58 | Inpatient (IN) | payer MEDICAID ==
[2018-02-25] MEDS ORDERED: Sodium Chloride 0.9% 1,000 ML IV ONE ×2 (10:03→14:37)
--- NOTE | 2018-02-25 10:06 | EDM.PDOC ---
ED HPI GENERAL MEDICAL PROBLEM - General Stated Complaint: AMB Time Seen by Provider: 02/25/18 10:01 - History of Present Illness INITIAL COMMENTS - FREE TEXT/NARRATIVE: HISTORY AND PHYSICAL: History of present illness: Patient 38-year-old white male presents with a concern of having drank approximately 8 ounces of antifreeze suicide attempt he called paramedics to transport a patient remains cooperative and does nausea drank this and attempt to take his own life. Since her concern Review of systems: As per history of present illness and below otherwise all systems reviewed and negative. Past medical history: As per history of present illness and as reviewed below otherwise noncontributory. Surgical history: As per history of present illness and as reviewed below otherwise noncontributory. Social history: No reported history of drug or alcohol abuse. Family history: As per history of present illness and as reviewed below otherwise noncontributory. Physical exam: HEENT: Atraumatic, normocephalic, pupils reactive, negative for conjunctival pallor or scleral icterus, mucous membranes moist, throat clear, neck supple, nontender, trachea midline. Lungs: Clear to auscultation, breath sounds equal bilaterally, chest nontender. Heart: S1S2, regular, negative for clicks, rubs, or JVD. Abdomen: Soft, nondistended, nontender. Negative for masses or hepatosplenomegaly. Negative for costovertebral tenderness. Pelvis: Stable nontender. Genitourinary: Deferred. Rectal: Deferred. Extremities: Atraumatic, negative for cords or calf pain. Neurovascular unremarkable. Neuro: Awake, alert, oriented. Cranial nerves II through XII unremarkable. Cerebellum unremarkable. Motor and sensory unremarkable throughout. Exam nonfocal. Diagnostics: CBC CMP UA urine drug screen EtOH aspirin Tylenol level chest x-ray Therapeutics: saline 1 L bolus. fomepizole 15 mg/kg IV Impression: #1 ethylene glycol ingestion to depressive episode with suicide attempt Definitive disposition and diagnosis as appropriate pending reevaluation and review of above. - Related Data Allergies Allergy/AdvReac Type Severity Reaction Status Date / Time No Known Allergies Allergy Verified 12/03/17 04:45 Home Meds: Home Meds glipiZIDE [Glucotrol XL] 15 mg PO DAILY 10/06/17 [History] [place] Carbonate 200 mg PO DAILY 12/03/17 [History] Omeprazole Magnesium [Prilosec Otc] 20 mg PO DAILY 12/03/17 [History] QUEtiapine Fumarate [Seroquel] 300 mg PO DAILY 12/03/17 [History] Past Medical History - Past Health History Medical/Surgical History: Denies Medical/Surgical History Cardiovascular History: Reports: Hypertension Other Cardiovascular History: not currently taking any meds for HTN Gastrointestinal History: Reports: GERD Genitourinary History: Reports: Chronic Renal Insuffiency Neurological History: Reports: Seizure Other Neuro History: states has seizures after not drinking for periods of time Psychiatric History: Reports: Depression, Suicide Attempt, Suicidal Ideation Endocrine/Metabolic History: Reports: Diabetes, Type II Oncologic (Cancer) History: Reports: None - Infectious Disease History Infectious Disease History: Reports: Chicken Pox - Past Surgical History GI Surgical History: Reports: Appendectomy, Cholecystectomy Musculoskeletal Surgical History: Reports: Shoulder Surgery, Other (See Below) Social & Family History - Family History Family Medical History: Noncontributory - Caffeine Use Caffeine Use: Reports: None ED ROS GENERAL - Review of Systems Review Of Systems: ROS reveals no pertinent complaints other than HPI. ED EXAM, GENERAL - Physical Exam Exam: See Below (The dictation) Course - Orders/Labs/Meds Orders: Active Orders 24 hr Category Date Time Status EKG Documentation Completion [RC] STAT Care 02/25/18 10:01 Ordered Chest 1V Frontal [CR] Stat Exams 02/25/18 10:03 Ordered ACETAMINOPHEN [CHEM] Stat Lab 02/25/18 10:04 Ordered CBC WITH AUTO DIFF [HEME] Stat Lab 02/25/18 10:03 Ordered COMPREHENSIVE METABOLIC PN,CMP [CHEM] Stat Lab 02/25/18 10:03 Ordered DRUG SCREEN, URINE [URCHEM] Stat Lab 02/25/18 10:03 Ordered ETHANOL BLOOD MEDICAL [CHEM] Stat Lab 02/25/18 10:03 Ordered INR,PT,PROTHROMBIN TIME [COAG] Stat Lab 02/25/18 10:03 Ordered SALICYLATE [CHEM] Stat Lab 02/25/18 10:04 Ordered UA W/MICROSCOPIC [URIN] Stat Lab 02/25/18 10:03 Ordered Sodium Chloride 0.9% [Normal Saline] 1,000 ml Med 02/25/18 10:03 Ordered IV STAT Medication Orders Sodium Chloride (Normal Saline) 1,000 mls @ 999 mls/hr IV STAT ONE Stop: 02/25/18 11:03 Meds: Medications Generic Name Dose Route Start Last Admin Trade Name [place] PRN Reason Stop Dose Admin Sodium Chloride 1,000 mls @ 999 mls/hr 02/25/18 10:03 Normal Saline IV 02/25/18 11:03 STAT ONE Departure - Departure Time of Disposition: 10:09 Disposition: DC/Tfer to Acute Hospital 02 Condition: Serious Clinical Impression: Overdose Depression Qualifiers: Depression Type: unspecified Qualified Code(s): F32.9 - Major depressive disorder, single episode, unspecified - Discharge Information - My Orders Last 24 Hours: My Active Orders 02/25/18 10:01 EKG Documentation Completion [RC] STAT 02/25/18 10:03 Chest 1V Frontal [CR] Stat CBC WITH AUTO DIFF [HEME] Stat COMPREHENSIVE METABOLIC PN,CMP [CHEM] Stat DRUG SCREEN, URINE [URCHEM] Stat ETHANOL BLOOD MEDICAL [CHEM] Stat INR,PT,PROTHROMBIN TIME [COAG] Stat UA W/MICROSCOPIC [URIN] Stat Sodium Chloride 0.9% [Normal Saline] 1,000 ml IV STAT 02/25/18 10:04 ACETAMINOPHEN [CHEM] Stat SALICYLATE [CHEM] Stat - Assessment/Plan Last 24 Hours: My Active Orders 02/25/18 10:01 EKG Documentation Completion [RC] STAT 02/25/18 10:03 Chest 1V Frontal [CR] Stat CBC WITH AUTO DIFF [HEME] Stat COMPREHENSIVE METABOLIC PN,CMP [CHEM] Stat DRUG SCREEN, URINE [URCHEM] Stat ETHANOL BLOOD MEDICAL [CHEM] Stat INR,PT,PROTHROMBIN TIME [COAG] Stat UA W/MICROSCOPIC [URIN] Stat Sodium Chloride 0.9% [Normal Saline] 1,000 ml IV STAT 02/25/18 10:04 ACETAMINOPHEN [CHEM] Stat SALICYLATE [CHEM] Stat
[2018-02-25] MEDS ORDERED: Fomepizole 1.5 GM in Sodium Chloride 0.9% 100 ML IV ONE (10:10)
[2018-02-25 10:47] LABS: CHLORIDE,CL 87 mmol/L (98-107); SODIUM,NA 125 mmol/L (136-148)
[2018-02-25] MEDS ORDERED: Ondansetron 4 MG/2 ML SDV IVPUSH ONE (11:46)
[2018-02-25] MEDS ORDERED: Albuterol/Ipratropium 3.0-0.5 MG/3 ML Neb Soln NEB PRN (14:46)
[2018-02-25] MEDS ORDERED: Sodium Chloride 0.9% 10 ML Syringe FLUSH PRN (14:46)
[2018-02-25] MEDS ORDERED: Sodium Chloride 0.9% 2.5 ML Syringe FLUSH PRN (14:46)
[2018-02-25] MEDS ORDERED: Morphine 2 MG/ML Syringe IVPUSH PRN (14:46)
[2018-02-25] MEDS ORDERED: Potassium Chloride 20 MEQ Tab.ER PO ONE (14:49)
[2018-02-25] MEDS ORDERED: Ondansetron 4 MG/2 ML SDV IVPUSH PRN (14:52)
[2018-02-25] MEDS ORDERED: Lactated Ringers 1,000 ML IV SCH (15:00)
[2018-02-25] MEDS ORDERED: Enoxaparin 40 MG/0.4 ML Syringe SUBCUT SCH (15:00)
[2018-02-25] MEDS ORDERED: Sodium Chloride 0.9% with KCl 1,000 ML IV SCH (15:00)
[2018-02-25 15:39] LABS: CHLORIDE,CL 92 mmol/L (98-107); SODIUM,NA 130 mmol/L (136-148)
[2018-02-25] MEDS ORDERED: Magnesium Sulfate/Water 2 GM in Premix Bag 1 BAG IV ONE (16:35)
[2018-02-25 19:01] VITALS: BP 138/78
[2018-02-25] MEDS ORDERED: SODIUM CHLORIDE 0.9% IV SCH (22:00)
[2018-02-25] MEDS ORDERED: FOMEPIZOLE IV SCH (22:00)
--- NOTE | 2018-02-25 22:55 | PCM.HP ---
H&P History of Present Illness - General Admit Problem/Dx: Admission Diagnosis/Problem Admission Diagnosis/Problem Depression Bilateral Flank Pain Score (Numeric/FACES): 6 abdomen Pain Score (Numeric/FACES): 4 - Related Data Allergies/Adverse Reactions: Allergies Allergy/AdvReac Type Severity Reaction Status Date / Time No Known Allergies Allergy Verified 02/25/18 10:27 Home Medications: Home Meds . [No Known Home Meds] 02/25/18 [History] Past Medical History - Past Health History Medical/Surgical History: Denies Medical/Surgical History Cardiovascular History: Reports: Hypertension Other Cardiovascular History: not currently taking any meds for HTN Gastrointestinal History: Reports: GERD Genitourinary History: Reports: Chronic Renal Insuffiency Musculoskeletal History: Reports: Fracture Neurological History: Reports: Concussion, Seizure Other Neuro History: Withdrawal seizures Psychiatric History: Reports: Addiction, Depression, Suicide Attempt, Suicidal Ideation Other Psychiatric History: ETOH addiction Endocrine/Metabolic History: Reports: Diabetes, Type II Other Endocrine/Metabolic History: States he was on insulin for a while, stopped taking insulin in December of 2017 and has been watching his diet closely since Oncologic (Cancer) History: Reports: None - Infectious Disease History Infectious Disease History: Reports: Chicken Pox - Past Surgical History Cardiovascular Surgical History: Reports: None GI Surgical History: Reports: Appendectomy, Cholecystectomy Endocrine Surgical History: Reports: None Neurological Surgical History: Reports: None Musculoskeletal Surgical History: Reports: Shoulder Surgery, Other (See Below) Other Musculoskeletal Surgeries/Procedures:: Right foot and left shoulder Social & Family History - Family History Family Medical History: Noncontributory - Tobacco Use Smoking Status *Q: Current Every Day Smoker Years of Tobacco use: 15 Packs/Tins Daily: 1 - Caffeine Use Caffeine Use: Reports: Tea - Alcohol Use Days Per Week of Alcohol Use: 2 Number of Drinks Per Day: 6 Total Drinks Per Week: 12 - Recreational Drug Use Recreational Drug Use: No Exam - Vital Signs Vital Signs: Last Vital Signs Temp 97.2 F 02/25/18 19:20 Pulse 91 02/25/18 19:20 Resp 17 02/25/18 19:20 BP 138/78 02/25/18 19:20 Pulse Ox 96 02/25/18 19:00 Weight: 227 lb 11.8 oz - Patient Data Lab Results Last 24 hrs: Laboratory Results - last 24 hr 08/02/25/18 02/25/18 Range/Units 10:17 10:17 10:17 WBC 6.27 (4.0-11.0) K/uL RBC 4.96 (4.50-5.90) M/uL Hgb 14.5 (13.0-17.0) g/dL Hct 41.3 (38.0-50.0) % MCV 83.3 (80.0-98.0) fL MCH 29.2 (27.0-32.0) pg MCHC 35.1 (31.0-37.0) g/dL RDW Std Deviation 42.5 (28.0-62.0) fl RDW Coeff of [place] 14 (11.0-15.0) % Plt Count 112 L (150-400) K/uL MPV 9.10 (7.40-12.00) fL Neut % (Auto) 73.4 (48.0-80.0) % Lymph % (Auto) 13.7 L (16.0-40.0) % [place] % (Auto) 12.4 (0.0-15.0) % Eos % (Auto) 0.3 (0.0-7.0) % Baso % (Auto) 0.2 (0.0-1.5) % Neut # (Auto) 4.6 (1.4-5.7) K/uL Lymph # (Auto) 0.9 (0.6-2.4) K/uL [place] # (Auto) 0.8 (0.0-0.8) K/uL Eos # (Auto) 0.0 (0.0-0.7) K/uL Baso # (Auto) 0.0 (0.0-0.1) K/uL Nucleated RBC % 0.0 /100WBC Nucleated RBCs # 0 K/uL INR 1.09 Sodium 125 L (136-148) mmol/L Potassium 2.9 L (3.5-5.1) mmol/L Chloride 87 L (98-107) mmol/L Carbon Dioxide 28.8 (21.0-32.0) mmol/L BUN 9 (7.0-18.0) mg/dL Creatinine 1.1 (0.8-1.3) mg/dL Est Cr Clr Drug Dosing 101.90 mL/min Estimated GFR (MDRD) > 60.0 ml/min Glucose 203 H (74-106) mg/dL Calcium 8.9 (8.5-10.1) mg/dL Phosphorus (2.6-4.7) mg/dL Magnesium (1.8-2.4) mg/dL Total Bilirubin 2.0 H (0.2-1.0) mg/dL AST 161 H (15-37) IU/L ALT 169 H (14-63) IU/L Alkaline Phosphatase 149 H (46-116) U/L Total Protein 7.2 (6.4-8.2) g/dL Albumin 3.8 (3.4-5.0) g/dL Globulin 3.4 (2.0-3.5) g/dL Albumin/Globulin Ratio 1.1 L (1.3-2.8) Urine Color Urine Appearance Urine pH (5.0-8.0) Ur Specific [place] (1.001-1.035) Urine Protein (NEGATIVE) mg/dL Urine Glucose (UA) (NEGATIVE) mg/dL Urine Ketones (NEGATIVE) mg/dL Urine Occult Blood (NEGATIVE) Urine Nitrite (NEGATIVE) Urine Bilirubin (NEGATIVE) Urine Urobilinogen (<2.0) EU/dL Ur Leukocyte Esterase (NEGATIVE) Urine RBC (0-2/HPF) Urine WBC (0-5/HPF) Ur Squamous Epith Cells Urine Bacteria (NEGATIVE) Salicylates <0.2 (0-20) mg/dL Urine Opiates Screen (NEGATIVE) Ur Oxycodone Screen (NEGATIVE) Urine Methadone Screen (NEGATIVE) Acetaminophen 0.0 ug/mL Ur Barbiturates Screen (NEGATIVE) Ur Phencyclidine Scrn (NEGATIVE) Ur Amphetamine Screen (NEGATIVE) U Methamphetamines Scrn (NEGATIVE) U Benzodiazepines Scrn (NEGATIVE) U Cocaine Metab Screen (NEGATIVE) U Marijuana (THC) Screen (NEGATIVE) Ethyl Alcohol <3 mg/dL 02/25/18 02/25/18 02/25/18 Range/Units 13:20 13:20 15:04 WBC 4.53 (4.0-11.0) K/uL RBC 4.62 (4.50-5.90) M/uL Hgb 13.5 (13.0-17.0) g/dL Hct 38.7 (38.0-50.0) % MCV 83.8 (80.0-98.0) fL MCH 29.2 (27.0-32.0) pg MCHC 34.9 (31.0-37.0) g/dL RDW Std Deviation 43.1 (28.0-62.0) fl RDW Coeff of [place] 14 (11.0-15.0) % Plt Count 105 L (150-400) K/uL MPV 8.90 (7.40-12.00) fL Neut % (Auto) (48.0-80.0) % Lymph % (Auto) (16.0-40.0) % [place] % (Auto) (0.0-15.0) % Eos % (Auto) (0.0-7.0) % Baso % (Auto) (0.0-1.5) % Neut # (Auto) (1.4-5.7) K/uL Lymph # (Auto) (0.6-2.4) K/uL [place] # (Auto) (0.0-0.8) K/uL Eos # (Auto) (0.0-0.7) K/uL Baso # (Auto) (0.0-0.1) K/uL Nucleated RBC % 0.0 /100WBC Nucleated RBCs # 0 K/uL INR Sodium (136-148) mmol/L Potassium (3.5-5.1) mmol/L Chloride (98-107) mmol/L Carbon Dioxide (21.0-32.0) mmol/L BUN (7.0-18.0) mg/dL Creatinine (0.8-1.3) mg/dL Est Cr Clr Drug Dosing mL/min Estimated GFR (MDRD) ml/min Glucose (74-106) mg/dL Calcium (8.5-10.1) mg/dL Phosphorus (2.6-4.7) mg/dL Magnesium (1.8-2.4) mg/dL Total Bilirubin (0.2-1.0) mg/dL AST (15-37) IU/L ALT (14-63) IU/L Alkaline Phosphatase (46-116) U/L Total Protein (6.4-8.2) g/dL Albumin (3.4-5.0) g/dL Globulin (2.0-3.5) g/dL Albumin/Globulin Ratio (1.3-2.8) Urine Color YELLOW Urine Appearance CLEAR Urine pH 7.0 (5.0-8.0) Ur Specific [place] <= 1.005 (1.001-1.035) Urine Protein NEGATIVE (NEGATIVE) mg/dL Urine Glucose (UA) NEGATIVE (NEGATIVE) mg/dL Urine Ketones NEGATIVE (NEGATIVE) mg/dL Urine Occult Blood NEGATIVE (NEGATIVE) Urine Nitrite NEGATIVE (NEGATIVE) Urine Bilirubin NEGATIVE (NEGATIVE) Urine Urobilinogen 0.2 (<2.0) EU/dL Ur Leukocyte Esterase NEGATIVE (NEGATIVE) Urine RBC NONE SEEN (0-2/HPF) Urine WBC NONE SEEN (0-5/HPF) Ur Squamous Epith Cells NOT SEEN Urine Bacteria NOT SEEN (NEGATIVE) Salicylates (0-20) mg/dL Urine Opiates Screen NEGATIVE (NEGATIVE) Ur Oxycodone Screen NEGATIVE (NEGATIVE) Urine Methadone Screen NEGATIVE (NEGATIVE) Acetaminophen ug/mL Ur Barbiturates Screen NEGATIVE (NEGATIVE) Ur Phencyclidine Scrn NEGATIVE (NEGATIVE) Ur Amphetamine Screen NEGATIVE (NEGATIVE) U Methamphetamines Scrn NEGATIVE (NEGATIVE) U Benzodiazepines Scrn NEGATIVE (NEGATIVE) U Cocaine Metab Screen NEGATIVE (NEGATIVE) U Marijuana (THC) Screen NEGATIVE (NEGATIVE) Ethyl Alcohol mg/dL 02/25/18 Range/Units 15:04 WBC (4.0-11.0) K/uL RBC (4.50-5.90) M/uL Hgb (13.0-17.0) g/dL Hct (38.0-50.0) % MCV (80.0-98.0) fL MCH (27.0-32.0) pg MCHC (31.0-37.0) g/dL RDW Std Deviation (28.0-62.0) fl RDW Coeff of [place] (11.0-15.0) % Plt Count (150-400) K/uL MPV (7.40-12.00) fL Neut % (Auto) (48.0-80.0) % Lymph % (Auto) (16.0-40.0) % [place] % (Auto) (0.0-15.0) % Eos % (Auto) (0.0-7.0) % Baso % (Auto) (0.0-1.5) % Neut # (Auto) (1.4-5.7) K/uL Lymph # (Auto) (0.6-2.4) K/uL [place] # (Auto) (0.0-0.8) K/uL Eos # (Auto) (0.0-0.7) K/uL Baso # (Auto) (0.0-0.1) K/uL Nucleated RBC % /100WBC Nucleated RBCs # K/uL INR Sodium 130 L (136-148) mmol/L Potassium 2.8 L (3.5-5.1) mmol/L Chloride 92 L (98-107) mmol/L Carbon Dioxide 28.2 (21.0-32.0) mmol/L BUN 7 (7.0-18.0) mg/dL Creatinine 1.1 (0.8-1.3) mg/dL Est Cr Clr Drug Dosing 101.90 mL/min Estimated GFR (MDRD) > 60.0 ml/min Glucose 160 H (74-106) mg/dL Calcium 8.0 L (8.5-10.1) mg/dL Phosphorus 3.7 (2.6-4.7) mg/dL Magnesium 1.3 L (1.8-2.4) mg/dL Total Bilirubin 1.9 H (0.2-1.0) mg/dL AST 124 H (15-37) IU/L ALT 145 H (14-63) IU/L Alkaline Phosphatase 132 H (46-116) U/L Total Protein 6.3 L (6.4-8.2) g/dL Albumin 3.3 L (3.4-5.0) g/dL Globulin 3.0 (2.0-3.5) g/dL Albumin/Globulin Ratio 1.1 L (1.3-2.8) Urine Color Urine Appearance Urine pH (5.0-8.0) Ur Specific [place] (1.001-1.035) Urine Protein (NEGATIVE) mg/dL Urine Glucose (UA) (NEGATIVE) mg/dL Urine Ketones (NEGATIVE) mg/dL Urine Occult Blood (NEGATIVE) Urine Nitrite (NEGATIVE) Urine Bilirubin (NEGATIVE) Urine Urobilinogen (<2.0) EU/dL Ur Leukocyte Esterase (NEGATIVE) Urine RBC (0-2/HPF) Urine WBC (0-5/HPF) Ur Squamous Epith Cells Urine Bacteria (NEGATIVE) Salicylates (0-20) mg/dL Urine Opiates Screen (NEGATIVE) Ur Oxycodone Screen (NEGATIVE) Urine Methadone Screen (NEGATIVE) Acetaminophen ug/mL Ur Barbiturates Screen (NEGATIVE) Ur Phencyclidine Scrn (NEGATIVE) Ur Amphetamine Screen (NEGATIVE) U Methamphetamines Scrn (NEGATIVE) U Benzodiazepines Scrn (NEGATIVE) U Cocaine Metab Screen (NEGATIVE) U Marijuana (THC) Screen (NEGATIVE) Ethyl Alcohol mg/dL Result Diagrams: 02/25/18 15:04 02/25/18 15:04 Orders Last 24hrs: Active Orders 24 hr Category Date Time Status Patient Status [ADT] Stat ADT 02/25/18 11:09 Active Transfer Patient (Change bed) [ADT] Routine ADT 02/25/18 14:46 Ordered EKG Documentation Completion [RC] STAT Care 02/25/18 10:01 Active Oxygen Therapy [RC] PRN Care 02/25/18 14:46 Active Pulse Oximetry [RC] PRN Care 02/25/18 14:47 Active RT Aerosol Therapy [RC] ASDIRECTED Care 02/25/18 14:49 Active Up ad [place] [RC] ASDIRECTED Care 02/25/18 14:46 Active VTE/DVT Education [RC] PER UNIT ROUTINE Care 02/25/18 14:46 Active Vital Signs [RC] Q1H Care 02/25/18 14:46 Active Chest 1V Frontal [CR] Stat Exams 02/25/18 10:03 Taken DRUG SCREEN, URINE [URCHEM] Stat Lab 02/25/18 13:20 Ordered OSMOLALITY - SERUM [REF] Stat Lab 02/25/18 10:17 Received UA W/MICROSCOPIC [URIN] Stat Lab 02/25/18 13:20 Ordered Peripheral IV Insertion Adult [OM.PC] Routine Oth 02/25/18 14:46 Ordered Saline Lock Insert [OM.PC] Routine Oth 02/25/18 14:46 Ordered Sequential Compression Device [OM.PC] Per Unit Routine Oth 02/25/18 14:47 Ordered Resuscitation Status Routine Resus Stat 02/25/18 14:46 Ordered
--- NOTE | 2018-02-26 01:41 | PCM.SN ---
- Free Text/Narrative Note: [id number]
--- NOTE | 2018-02-26 02:10 | HP ---
DATE OF : 1980 PRIMARY CARE PHYSICIAN: None PCP HISTORY OF PRESENT ILLNESS: The patient is a 38-year-old man, who presented to the emergency room, brought by EMS after he was found to be vomiting and retching in his hotel room. The patient suffers from depression for a long time, feels miserable feels like hurting himself . He wanted to kill himself before, 2 more times. First time when he attempted suicide was when he was 30, when he jumped in front of a car and had a fracture of the shoulder and the second time he attempted suicide by drinking antifreeze. Today, he was supposed to go to work and went outside, took antifreeze from his truck and drank about a glass of antifreeze. He reports being diagnosed with depression since 1999. He went and talked to a doctor, they put him on medication and therapy. He was on Zoloft and Seroquel. Seroquel was 200 mg at bedtime. He was evaluated for bipolar disorder, but it was determined that he does not have bipolar disorder. He has just depression. Sometimes it is hard for him to concentrate and even hard to take a shower. His appetite is poor. He sometimes goes without eating for 2 to 3 days. He reports his mom was murdered and she suffered from depression. She was murdered when he was 12. He also reports problems sleeping. He also was seen by Dr. Hill in [place], who prescribed him Prozac low dose, which did not help him and he did not want to pick his medication anymore because the medication did not help him. He has a brother in [place] and his father is in [place]. Today between 7:30 and 8:00 a.m. after he took the antifreeze , and he felt his stomach was sore and he had lower back sores and he started throwing up in the hotel room when he was found by the room service and EMS was called in. He was brought to the emergency room. PAST MEDICAL HISTORY: He has: 1. Diabetes mellitus. 2. Acid reflux. 3. Major depression. PAST SURGICAL HISTORY: None. ALLERGIES: No known drug allergies. SOCIAL HISTORY: Smoking history, smoked 1 pack of cigarettes per day for 16 to 18 years. Alcohol, 1 to 2 times a week. He drank yesterday. He drinks vodka 4 to 8 shots since he was 19 or 20 years old. No drug use. VITAL SIGNS: At admission; the patient's heart rate 100, blood pressure 140/90, respiratory rate 19, and oxygen saturation 94%. PHYSICAL EXAMINATION: head is atraumatic , normocephalic Pupils are equally reactive to light neck is supple , no thyromegaly, no lymphadenopathy Heart : s1 , S2 RRR, no M Lungs: CTA b/l Abdomen : soft , NT , positive BS Ext: no edema Mood : depressed Neurol: AOtimes 3 , cooperative , no gross focal neurologic deficits. LABORATORY DATA: At admission; his WBC 6.27, hemoglobin 14.5, hematocrit 41.3, platelet count 112. INR is 1.09. Sodium 125, potassium 2.9, chloride 87, carbon dioxide 28.8, BUN 9, creatinine 1.1. GFR more than 60. Glucose 203, calcium 8.9, total bilirubin 2, AST 161, ALT 169, alkaline phosphatase 149, total protein 7.2, globulin 3.4. Urinalysis was negative. Urine toxicology was negative. ASSESSMENT AND PLAN: Overdose with antifreeze in a suicide attempt . The patient received in the emergency room fomepizole 1.5 g, 50 mg/kg first time and this was given around the 10:00, and he is supposed to get the next dose of 10 mg/kg at 12 hours after. ER physician made arrangements for the patient to be transferred to [place]. No ambulance is available. The patient will be transferred at around 8:30 p.m. For hypomagnesemia, the patient will be given magnesium sulfate 2 g IV one dose for hypokalemia. - We will supplement potassium with potassium chloride p.o. and also we will give the patient IV fluids with potassium chloride. We will consult the ICU for Overdose . For depression, the patient would need to follow up with Psychiatry when medically stable. Elevated LFTs- will monitor LFTs Discharge summary: Patient was stable in ICU , his liver enzymes improved on repeat labs Potassium and magnesium was supplemented He was transferred by ambulance to [place] at 8 pm JULES / SANDEEP /[id number] ROSINA
--- NOTE | 2018-02-26 14:15 | CR ---
EXAM DATE: 02/25/18 PATIENT'S AGE: 38 Patient: JANET ENGLISH Facility: [place], [place] Site . Site : 1980 Study: XRay Chest [id number]/19/2018 10:32:07 AM Ordering Physician: Umair Raymundo Final Report: Clinical indication : Pain. Shortness of breath. Drank 8 ounces of anti freeze. Suicide attempt. FINDINGS: The cardiomediastinal silhouette, lung parenchyma, pulmonary vasculature and pleural surfaces are all normal. The bony thorax appears intact. There is a screw projecting upon the left glenoid. IMPRESSION: No acute process identified. Dictated by Chava Romo MD @ Feb 25 2018 11:04AM (Electronic Signature) Report Signed by Proxy. ROSINA
== END 2018-02-25 19:44 | DRG 918 ==
LOC: MW.ED 09:58 → MW.ICU 11:09 → OBSVTOIN 14:51 → MW.ICU 14:52
PROVIDERS: ADMIT Internal Medicine; ATTEND Internal Medicine
DX: T51.8X2A Toxic effect of other alcohols, intentional self-harm, initial encounter (principal); Y92.59 Other trade areas as the place of occurrence of the external cause; E87.6 Hypokalemia; F32.9 Major depressive disorder, single episode, unspecified; K21.9 Gastro-esophageal reflux disease without esophagitis; I12.9 Hypertensive chronic kidney disease with stage 1 through stage 4 chronic kidney disease, or unspecified chronic kidney disease; E11.22 Type 2 diabetes mellitus with diabetic chronic kidney disease; N18.9 Chronic kidney disease, unspecified; E83.42 Hypomagnesemia; Z87.891 Personal history of nicotine dependence; Z79.899 Other long term (current) drug therapy; Z79.84 Long term (current) use of oral hypoglycemic drugs
CPT/HCPCS: 36415; 71045; 71045-26; 80053; 80305-QW; 81001; 83735; 83930; 84100; 85025; 85027; 85610; 93005; 96361; 96365; 96375; 99285-25; A9270-GY; G0480; J1451; J1650; J2405; J3475; J3480; J7030; J7040